=== PATIENT | male | born 1980 | race Caucasian/White ===

== ENCOUNTER 2016-04-16 15:59 | Emergency (ER) | payer OTHER ==
[~2016-04-16] VITALS: Ht 182.9 cm; Wt 108.9 kg
[~2016-04-16 15:59] MED LIST: ATIVAN1 MG PO; CALCIUM 600-D 61 TAB; DILAUDID2 MG PO; IBUPROFEN800 MG PO; LAMICTAL200 M1 PO; MULTIVITAMIN1 TAB PO; OMEGA-31000 MG PO; ONFI10 MG PO; PERCOCET 325 MG1 TA2 PO; PROTONIX40 M3 PO; REGLAN10 MG PO; VICODIN5-300 PO; ZOFRAN ODT4 MG PO
[2016-04-16 16:27] LABS: ABSOLUTE BASOPHIL COUNT 0 /CUMM (0.0-0.2); ABSOLUTE EOSINOPHIL COUNT 0.4 /CUMM (0.0-0.7); ABSOLUTE GRANULOCYTE CT 5.8 /CUMM (1.4-6.5); ABSOLUTE LYMPH COUNT 2.1 /CUMM (1.2-3.4); ABSOLUTE MONOCYTE COUNT 0.5 /CUMM (0.10-0.60); BASOPHIL % 0.5 % (0.0-2.0); EOSINOPHIL % 4.5 % (0-5); GRANULOCYTE % 65.1 % (42.2-75.2); HEMATOCRIT 47.2 % (42-52); MEAN CORPUSCULAR HGB CONC 33.9 G/DL (33.0-37.0); MEAN CORPUSCULAR VOLUME 91.4 FL (80.0-94.0); MEAN PLATELET VOLUME 9.1 FL (7.4-10.4); PLATELET COUNT 186 /CUMM (130-400); RBC DISTRIBUTION WIDTH 12.9 % (11.5-14.5); RED BLOOD CELL CT 5.16 /CUMM (4.70-6.10); WHITE BLOOD CELL COUNT 8.9 /CUMM (4.8-10.8)
[2016-04-16 16:35] LABS: PT 10.9 SEC (9.4-12.5); PTT 33 SEC (25-37)
--- NOTE | 2016-04-16 18:12 | ED CARDIAC/CP/PALPITATIONS ---
See Addendum History of Present Illness General Chief Complaint: Chest Pain Stated Complaint: SEN AT [facility] CP SIGNED OUT AMA / CP NOW 5 Source: patient, family, medical records Exam Limitations: no limitations Vital Signs & Intake/Output Vital Signs & Intake/Output Vital Signs Date Time Temp Pulse Resp B/P Pulse O2 O2 Flow FiO2 Ox Delivery Rate 04/16 1817 98.2 63 16 123/59 98 Room Air 04/16 1742 Room Air 04/16 1617 98.2 79 16 138/83 97 Room Air Allergies Coded Allergies: MDX - Codeine (CODEINE) (UNKNOWN 02/12/14) MDX - Diphenhydramine (From BENADRYL ALLERGY) (UNKNOWN 02/12/14) MDX - Ibuprofen (From Advil) (UNKNOWN 02/12/14) MDX - NUTS (NUTS) (UNKNOWN 02/12/14) MDX - Nsaid (Nsaid) (UNKNOWN 02/12/14) Uncoded Allergies: CATEPILLARS (Mild, THE "SILK" RASH AND SKIN FALLS OFF 05/04/14) Reconcile Medications CALCIUM CARBONATE/VITAMIN D3 (Calcium 600 + Vit D Tablet) (Unknown Strength) TAB (Unknown Dose) DAILY SUPPLEMENT (Reported) Clobazam (Onfi) 10 MG TABLET 1 TAB PO BID SEIZURES (Reported) HYDROCODONE/ACETAMINOPHEN (Hydrocodon-Acetaminophen 5-325) 5 MG-325 MG TABLET 1 TAB PO Q6H PRN pain Ibuprofen 800 MG TAB 1 TAB PO TID PRN PAIN Lamotrigine 200 MG TABLET 3 TAB PO BID SEIZURES (Reported) Lorazepam (Ativan) 1 MG TAB 1 TAB PO Q8H PRN MUSCLE SPASM METOCLOPRAMIDE HCL (Reglan) 10 MG TABLET 1 TAB PO Q6H PRN NAUSEA/HEADACHE Multivitamin (Multiple Vitamins) 1 EACH TABLET 1 TAB PO DAILY VITAMIN ( Reported) OMEGA-3 FATTY ACIDS/FISH OIL ([place] 3 1,000 MG Softgel) 300 MG-1,000 MG CAPSULE 1 TAB PO DAILY VITAMIN (Reported) Ondansetron (Zofran Odt) 4 MG ODT 1 TAB PO TID PRN NAUSEA OXYCODONE HCL/ACETAMINOPHEN (Percocet 5-325 MG Tablet) 325 MG/5 MG TAB 1-2 TAB PO Q4-6 PRN PRN PAIN TEN...[id number] Pantoprazole Sodium (Protonix) 40 MG TABLET. 1 TAB PO DAILY AC ACID REFLUX (Reported) Triage Note: 35 Y/O MALE C/O L SIDED CHEST PAIN AND L ARM PAIN (INTERMITTENT L ARM NUMBNESS) X 1 WEEK; STATES HE WAS FOUND UNRESPONSIVE BY DAUGHTER YESTERDAY AND WENT TO [facility]. HAD A COMPLETE WORK UP AND THEN SIGNED OUT AMA TO F/U WITH DOCTOR. TODAY CONTINUES TO HAVE L SIDED CHEST PAIN AND INTERMITTENT NAUSEA. DENIES OTHER COMPLAINTS EKG COMPLETED AND BLOODWORK SENT ALL RECORDS FROM [facility] WITH CHART Triage Nurses Notes Reviewed? 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 Patient was seen yesterday at [facility] for evaluation of unwitnessed syncopal event. He reports that around 2: 45 pm, her daughter found her on the floor and he was unrepsonsive. Daughter was able to wake up, and patient immediately complained of retrosternal stabbing like chest pain, radiating towards his left arm and jaw, with left arm numbness. He denied any diaphoresis,nausea/vomiting or shortness of breath. Pt was then taken to [facility] by ambulance. At the hospital workup was done including trops, EKG,CT head, CMP, and all the results were unremrkable for any ACS or intracranial pathology. Pt was to be kept till next day for observation, however he decided to leave AMA. Today, he saw his PCP, still complaining of left sided chest pain with radiation to his left arm and neck, with left hand numbness. He was then instructed to go to the ED. Regarding his chest pain, pt states that he has these episodes multiple times within the last few months. The pain is not related to exertion. His ME of 2001 from electrocution required cardiac cath but no stent was placed due to minimal occlusion.Pt also reports multiple stress stress which were unremarkable. Pt has cardiac risk factors of daily smoking and mother had ME at age 45-50. Past History Travel History Traveled to [place] past 21 day No Medical History Any Pertinent Medical History? 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 No Review of Systems Review of Systems Constitutional: Denies: chills, diaphoresis, fever, malaise, weakness. EENTM: Denies: blurred vision, double vision, visual changes. Respiratory: Denies: cough, hemoptysis, orthopnea, short of breath, wheezing. Cardiovascular: Reports: chest pain, syncope. Denies: edema, orthopena, palpitations, peripheral edema. GI: Denies: abdominal pain, bloating, constipation. Genitourinary: Denies: dysuria, frequency, hematuria. Musculoskeletal: Denies: back pain, joint pain, joint swelling. Skin: Denies: erythema. Neurological/Psychological: Denies: dementia, headache, numbness. Hematologic/Endocrine: Reports: no symptoms. Physical Exam Physical Exam General Appearance: well developed/nourished, no apparent distress, alert, awake Head: atraumatic, normal appearance Eyes: Bilateral: normal appearance, PERRL. Ears, Nose, Throat: normal pharynx, normal ENT inspection Neck: normal inspection, supple, full range of motion Respiratory: normal breath sounds, chest non-tender Cardiovascular: regular rate/rhythm Peripheral Pulses: 2+ dorsalis pedis (R), 2+ dorsalis pedis (L) Gastrointestinal: normal bowel sounds, soft, non-tender Back: normal inspection Extremities: normal inspection, normal capillary refill, normal range of motion, no edema Neurologic/Psych: no motor/sensory deficits, awake, alert, oriented x 3, normal gait, normal mood/affect, perforator II-XII nml as tested, strength 5/5 b/l lower and upper extremities. No notor or sensory deficits. babinski negative. Skin: intact, normal color Lymphatic: no anterior cervical jay Core Measures ACS in differential dx? Yes ASA ordered for poss ACS? No-ACS ruled out, Pt had ACS ruled out last night at [facility], repeat trops and EKG today were unremarkable for ACS. Severe Sepsis Present: No Septic Shock Present: No Progress Differential Diagnosis: AMI, aortic dissection, costochondritis, musculoskeletal pain, myocarditis, unstable angina, seizures Plan of Care: Orders Procedure Date/time Status TROPONIN LEVEL 04/16 1601 Complete PARTIAL THROMBOPLASTIN TIME 04/16 1601 Complete PROTHROMBIN TIME 04/16 1601 Complete MAGNESIUM 04/16 1601 Complete COMPREHENSIVE METABOLIC PANEL 04/16 1601 Complete CBC WITHOUT DIFFERENTIAL 04/16 1601 Complete EKG 04/16 1600 Active Laboratory Tests 04/16/16 1616: Anion Gap 11, Estimated GFR > 60, BUN/Creatinine Ratio 14.3, Glucose 126 H, Calcium 9.6, Magnesium 1.9, Total Bilirubin 0.4, AST 23, ALT 54, Alkaline Phosphatase 63, Troponin I < 0.01, Total Protein 6.5, Albumin 4.3, Globulin 2.2, Albumin/Globulin Ratio 2.0, PT 10.9, INR 1.04, APTT 33, CBC w Diff NO MAN DIFF REQ, RBC 5.16, MCV 91.4, MCH 31.0, RDW 12.9, MPV 9.1, Gran % 65.1, Lymphocytes % 24.1, Monocytes % 5.8, Eosinophils % 4.5, Basophils % 0.5, Absolute Granulocytes 5.8, Absolute Lymphocytes 2.1, Absolute Monocytes 0.5, Absolute Eosinophils 0.4, Absolute Basophils 0, PUBS MCHC 33.9 Initial ED EKG: no ST T wave changes Departure Departure Time of Disposition: 1819 Disposition: HOME OR SELF CARE Condition: Stable Clinical Impression Primary Impression: Muscular chest pain Ruled Out Impressions: ACS (acute coronary syndrome) Referrals: ROBERT VIRK MD (PCP/Family) SAMUEL MIGUEL MD Additional Instructions: Please seek immediate medical attention if your chest pain worsens Please make an appoinmtment with Dr Miguel (Acid Extractor) within this week Please follow up with your Primary care within 1 week. Departure Forms: Customer Survey General Discharge Information Critical Care Note Critical Care Note Critical Care Time: 30-74 min
[2016-04-16 18:17] VITALS: BP 123/59
== END 2016-04-16 18:35 ==
LOC: ERH 15:59
PROVIDERS: Emergency Medicine
DX: R07.89 Other chest pain (principal); I24.9 Acute ischemic heart disease, unspecified
CPT/HCPCS: 93005; 93010

== ENCOUNTER 2016-06-09 07:56 | Emergency (ER) | payer OTHER ==
[~2016-06-09] VITALS: Ht 182.9 cm; Wt 108.9 kg
[2016-06-09 08:06] VITALS: BP 129/80
--- NOTE | 2016-06-09 08:29 | ED CARDIAC/CP/PALPITATIONS ---
History of Present Illness General Chief Complaint: Chest Pain Stated Complaint: CHEST PAIN Source: patient, old records Exam Limitations: no limitations Vital Signs & Intake/Output Vital Signs & Intake/Output Vital Signs Date Time Temp Pulse Resp B/P Pulse O2 O2 Flow FiO2 Ox Delivery Rate 06/09 0934 98 06/09 0854 97.2 06/09 0806 97.2 86 16 129/80 98 Room Air Room Air Allergies Coded Allergies: NSAIDS (Non-Steroidal Anti-Inflamma (UNKNOWN 06/09/16) codeine (UNKNOWN 06/09/16) diphenhydramine (From BENADRYL ALLERGY) (UNKNOWN 06/09/16) ibuprofen (From ADVIL) (UNKNOWN 06/09/16) nut - unspecified (UNKNOWN 06/09/16) Uncoded Allergies: CATEPILLARS (Mild, THE "SILK" RASH AND SKIN FALLS OFF 05/04/14) Reconcile Medications Lamotrigine (Lamictal) 200 MG TABLET 3 TAB PO BID SEIZURES (Reported) Pantoprazole Sodium (Protonix) 40 MG TABLET.DR 1 TAB PO DAILY ACID REFLUX ( Reported) Triage Note: TRIAGE: 35 Y/O MALE PRESENTS C/O 08/31 MIDSTERNAL CHEST PAIN; "LIKE A SWORD IS GOING RIGHT THROUGH MY CHEST". ONSET LAST NIGHT, THEN AGAIN AT 0400 THIS MORNING. TOOK 162MG ASPIRIN. 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 "I'VE BEEN HAVING THIS CHEST PAIN FOR 2-3 MONTHS NOW, MY DOCTORS THINK IT MIGHT BE AFIB?" REPORTS SLIGHT SOB - ROOM AIR SPO2 98%. DENEIS ABDOMINAL PAIN. Triage Nurses Notes Reviewed? yes HPI: Patient presents for evaluation of been intermittent lower substernal chest pain that radiates to the left shoulder beginning about 2 months ago. Patient cannot recall if it was gradual or sudden in onset. He states that about one month ago he was evaluated by his judicial law clerk in [place] after an overnight stay at the [facility] with a resulting stress test and echocardiogram that were presumably normal. Patient states he was seen here in the [facility] emergency Department recently for a similar chest pain episode. He states he had been at the [place] emergency Department waiting room for 8 hours prior to leaving their and coming to [facility]. Last night he felt lightheaded with chest pain while in bed with his . He woke up at about 4 AM with a rapid heartbeat but then was able to get back to sleep. Later that morning he states he woke up on the kitchen floor after his found him there. He then got into his truck to go to work but felt too dizzy so he came to the emergency department. He states he is currently experiencing a moderate lower substernal chest pain that occasionally radiates to the left shoulder. It is a sharp pain on occasion with residual soreness and tightness. He is currently experiencing the soreness only. There is no change with deep inspiration or movement. He states however that his breathing is "heavy". He also admits to feeling sweaty last night. He has been monitoring his heart rate and states that even while simply watching TV his heart rate will go up to 120 and then returned to normal. He does admit to having a lot of stress in general which doesn't help his situation. He denies any drug use and drinks alcohol only occasionally. He is a one half pack per day cigarette smoker. Past History Travel History Traveled to [place] past 21 day No Medical History Any Pertinent Medical History? 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 No Review of Systems Review of Systems Constitutional: Reports: no symptoms. EENTM: Reports: no symptoms. Respiratory: Reports: no symptoms. Cardiovascular: Reports: see HPI. GI: Reports: no symptoms. Genitourinary: Reports: no symptoms. Musculoskeletal: Reports: no symptoms. Skin: Reports: no symptoms. Neurological/Psychological: Reports: no symptoms. Hematologic/Endocrine: Reports: no symptoms. Immunologic/Allergic: Reports: no symptoms. All Other Systems: Reviewed and Negative Physical Exam Physical Exam Cardiovascular: see below Comments: Gen.: Well-nourished, well-developed, no acute respiratory distress. Head: Normocephalic, atraumatic. Eyes: Normal inspection bilaterally Ears: Normal inspection bilaterally Nose: Normal inspection Throat/mouth : Moist mucosa Neck: Supple, full range of motion, no goiter Heart: Regular rate and rhythm, no murmurs rubs or gallops Lungs: Clear to auscultation bilaterally with normal air entry Chest: Nontender Back: Normal range of motion Abdomen: Soft, nontender, nondistended, normal bowel sounds Extremities: Normal range of motion grossly, equal radial pulses, no cyanosis clubbing or edema Neurologic: Cranial nerves grossly intact, speech is clear Skin: warm and dry Psychiatric: Calm, cooperative, no apparent delusions or hallucinations Core Measures ACS in differential dx? No Severe Sepsis Present: No Septic Shock Present: No Progress Differential Diagnosis: AMI, atrial fibrillation, musculoskeletal pain, PUD/GERD , PVCs/PACs, unstable angina, V-fib/V-Tach Plan of Care: Orders Procedure Date/time Status Telemetry/Global Creative Chairman 06/10 827 Active TROPONIN LEVEL 06/10 827 Complete MAGNESIUM 06/09 08 Complete CBC WITHOUT DIFFERENTIAL 06/10 0728 Complete BASIC METABOLIC PANEL 06/10 0728 Complete EKG 06/09 0757 Active Laboratory Tests 06/09/16 0830: Anion Gap 9, Estimated GFR > 60, BUN/Creatinine Ratio 15.7, Glucose 106 H, Calcium 9.7, Magnesium 2.1, Troponin I < 0.01, CBC w Diff NO MAN DIFF REQ, RBC 5.36, MCV 90.8, MCH 30.6, RDW 13.2, MPV 9.1, Gran % 56.6, Lymphocytes % 28.2, Monocytes % 7.4, Eosinophils % 7.3 H, Basophils % 0.5, Absolute Granulocytes 5.2, Absolute Lymphocytes 2.6, Absolute Monocytes 0.7 H, Absolute Eosinophils 0.7, Absolute Basophils 0, PUBS MCHC 33.7 Diagnostic Imaging: Discussed w/RAD: Radiology Read. CXR Impression: PATIENT: WICHO BRYAN PRESENT AGE: 35 PATIENT ACCOUNT NO: [id number] : 78 LOCATION: [facility] ORDERING PHYSICIAN: FAM SHANNON MD SERVICE DATE: 06/09/16 EXAM TYPE: RAD - XRY-CHEST XRAY, PA AND LATERAL EXAMINATION: XR CHEST CLINICAL INFORMATION: Chest pain and tachycardia. Smoking history. COMPARISON: Previous chest x-ray July 2013 TECHNIQUE: 2 views of the chest were obtained. FINDINGS: The cardiac and mediastinal contours are stable. The lungs are clear. There is no pleural effusion or pneumothorax. There are degenerative changes of the spine. IMPRESSION: No evidence for acute disease in the chest. DICTATED BY: LUZ MARIA INMAN MD DATE/TIME DICTATED:06/09/16855 PATIENT FINANCIAL REPRESENTATIVE:MONIQUE DATE/ TIME TRANSCRIBED:06/09/16855 CONFIDENTIAL, DO NOT COPY WITHOUT APPROPRIATE AUTHORIZATION. <Electronically signed in Other Vendor System> SIGNED BY: LUZ MARIA INMAN MD 06/09/16 09 Initial ED EKG: NSR, rate (81) Prior EKG: unchanged Rhythm Strip: normal sinus rhythm Comments: 06/09/2016 10:02:06 AM I have updated [facility] on his test results. They initially thought that there was "nothing wrong" but I have clarified with him that we simply have not defined the underlying cause of his symptoms yet. I stressed that we need to get a plan in place to systematically rule out possibilities. He has yet to have a Holter monitor and I have urged that he have this done to better define his episodes of elevated heart rate. He also admits to being under a lot of stress recently and may have even lost his job today due to his medical symptoms. Although I cannot attribute this to anxiety we have discussed this possibility and the patient is willing to try a trial of a sedative. He has a follow-up appointment with his primary care physician on . I've suggested he discuss with his primary care physician for further testing to determine why he is having these episodes. Departure Departure Disposition: HOME OR SELF CARE Condition: Stable Clinical Impression Primary Impression: Dizziness Secondary Impressions: Palpitations Referrals: ROBERT VIRK MD (PCP/Family) Additional Instructions: Ativan as prescribed. Follow-up with your primary care physician as scheduled this week for reevaluation of your symptoms and for further testing. Contact your judicial law clerk regarding a Holter monitor to better define the episodes of elevated heart rate. Return if any concerns or sudden worsening. Thank you for choosing the [facility] Emergency Department for your care. It was a pleasure to serve you today. Fam Shannon M.D. [facility] Departure Forms: Customer Survey General Discharge Information Critical Care Note Critical Care Note Critical Care Time: non-applicable
[2016-06-09 08:48] LABS: ABSOLUTE BASOPHIL COUNT 0 /CUMM (0.0-0.2); ABSOLUTE EOSINOPHIL COUNT 0.7 /CUMM (0.0-0.7); ABSOLUTE GRANULOCYTE CT 5.2 /CUMM (1.4-6.5); ABSOLUTE LYMPH COUNT 2.6 /CUMM (1.2-3.4); ABSOLUTE MONOCYTE COUNT 0.7 /CUMM (0.10-0.60); BASOPHIL % 0.5 % (0.0-2.0); EOSINOPHIL % 7.3 % (0-5); GRANULOCYTE % 56.6 % (42.2-75.2); HEMATOCRIT 48.7 % (42-52); MEAN CORPUSCULAR HGB 30.6 PG (27.0-31.0); MEAN CORPUSCULAR HGB CONC 33.7 G/DL (33.0-37.0); MEAN CORPUSCULAR VOLUME 90.8 FL (80.0-94.0); MEAN PLATELET VOLUME 9.1 FL (7.4-10.4); PLATELET COUNT 174 /CUMM (130-400); RBC DISTRIBUTION WIDTH 13.2 % (11.5-14.5); RED BLOOD CELL CT 5.36 /CUMM (4.70-6.10); WHITE BLOOD CELL COUNT 9.2 /CUMM (4.8-10.8)
--- NOTE | 2016-06-09 09:01 | RADIOLOGY REPORT ---
EXAMINATION: XR CHEST CLINICAL INFORMATION: Chest pain and tachycardia. Smoking history. COMPARISON: Previous chest x-ray July 2013 TECHNIQUE: 2 views of the chest were obtained. FINDINGS: The cardiac and mediastinal contours are stable. The lungs are clear. There is no pleural effusion or pneumothorax. There are degenerative changes of the spine. IMPRESSION: No evidence for acute disease in the chest.
[2016-06-09] MEDS ORDERED: ATIVAN0.5 M1 PO (10:10)
== END 2016-06-09 10:17 ==
LOC: ERH 07:56
PROVIDERS: Emergency Medicine
DX: R42 Dizziness and giddiness (principal); R00.2 Palpitations
CPT/HCPCS: 93005; 93010; 96374; J0131